=== PATIENT | male | born 1940 | race Caucasian/White ===

== ENCOUNTER 2018-12-26 10:43 | Day surgery (SDC) | payer MEDICARE, SELFPAY ==
--- NOTE | 2018-12-26 | PATH_ITS ---
[facility] Accession Number: [id number] . 01 Material submitted: . PART A: cecum - CECAL POLYP PART B: colon - ASCENDING COLON POLYP X3 PART C: colon - TRANSVERSE COLON POLYP . 02 Diagnosis: A. Cecum, Polyp, Biopsy: Benign lymphoid aggregate. . B. Ascending Colon, Polyps x3, Biopsies: Fragments of tubular adenoma and sessile serrated adenoma. . C. Transverse Colon, Polyp, Biopsy: Tubular adenoma. MRV 12/28/2018 1410 Local . 02 Electronically signed: . Diane Urbina MD, Pathologist NPI- [id number] . 01 Gross description: . Part A: CECAL POLYP: Received in formalin is 1 fragment(s) of olivo, soft tissue measuring 0.6 x 0.5 x 0.3 cm submitted entirely in 1 cassette(s). Part B: ASCENDING COLON POLYP X3: Received in formalin are multiple fragment(s) of olivo, soft tissue measuring 0.1 x 0.1 x 0.1 cm to 0.9 x 0.6 x 0.4 cm submitted entirely in 1 cassette(s) Part C: TRANSVERSE COLON POLYP: Received in formalin are 2 fragment(s) of olivo, soft tissue measuring 0.1 x 0.1 x 0.1 cm to 0.3 x 0.2 x 0.2 cm submitted entirely in 1 cassette(s) /[facility] 12/26/20182022 Local . 02 Pathologist provided ICD-10: D12.2, D12.3 . 02 CPT . 875674, 412856, 557105 Performed at: [address] [facility], [place], [place] [id number] MD Micah Ott MD Phone: [phone] Performed at: 02 [facility] [address] [place] [id number] MD Diane Urbina MD Phone: [phone]
--- NOTE | 2018-12-26 08:10 | PM.HP.1 ---
History of Present Illness History of Present Illness Date Patient Seen: 12/26/18 Chief complaint: [id number] Narrative: The patient is a 78-year-old male who is referred to our office due to a positive cologuard test. He had a prior colonoscopy performed in 2008 which according to him was normal. There is no family history of colon cancer and he currently has no alarm symptoms. Meds Home Medications and Allergies Home Medications Medication Instructions Recorded Confirmed Type No Known Home Medications 12/26/18 12/26/18 History Allergies Allergy/AdvReac Type Severity Reaction Status Date / Time No Known Drug Allergies Allergy Verified 12/26/18 11:09 Exam Narrative Exam Narrative: General: Patient is well developed, not in apparent distress Cardiovascular: Regular rate and rhythm, no murmurs, rubs, or gallops; no evidence of edema; no palpable abdominal aortic aneurysm Gastrointestinal: Normoactive bowel sounds, soft, nontender, nondistended, no rebound tenderness, no hepatosplenomegaly, no evidence of hernia Assessment & Plan Assessment & Plan narrative: 70-year-old male referred to our office due to a positive cologuard test. Last colonoscopy was in 2008 which the patient states was normal and patient declined at that time any further colonoscopies for screening. Regarding the procedure(s), the risks and potential complications, benefits, and alternatives (including not doing the procedure) were discussed with the patient. The risks include but are not limited to bleeding, splenic injury, infection, perforation which may require surgical intervention, missed lesions, and adverse reactions to sedative medicines. After a question and answer period, the patient agreed to proceed with the procedure(s) and gives informed consent.
[2018-12-26] MEDS: SODIUM CHLORIDE 0.9% 1,000 ML 70 ML IV (11:08)
[2018-12-26 11:09] VITALS: BP 150/92; PULSE 82; RESP 15; TEMP 36.9; O2SAT 98; BMI 25.7
--- NOTE | 2018-12-26 12:21 | PM.OP.ENDO ---
Operative Date/Time/Diagnoses Date of procedure: 12/26/18 Procedure Notes Procedure in detail: Surgeon: Greg Matthews MD Procedure: Colonoscopy with polypectomy Preoperative diagnosis: positive Cologuard Postoperative diagnosis: Colon polyps x5 status post polypectomy; sigmoid diverticulosis; hypertrophied anal papillae Medications: Conscious sedation using 2 mg IV of Midazolam and 100 mcg IV of Fentanyl Preanesthesia Assessment An H and P was performed/updated and the Px?s ASA class is 2. The procedure was discussed in detail with the patient. The potential risks and complications including infection, bleeding, missed lesions, perforation, need for surgery in case of perforation, prolonged hospital stay, and were explained. A brief question and answer period was allotted and once all questions were answered, informed consent was obtained. The patient was brought back to the procedure room and placed on standard monitoring. The patient?s vital signs were monitored continuously throughout the entire procedure. Prior to starting, a timeout was performed to confirm the patient?s identity, allergies, medications, and procedure. Procedure in detail The patient was placed in left lateral decubitus position and once adequate sedation was obtained a LISET was performed. The digital rectal examination did not reveal any palpable lesions. The tip of the colonoscope was placed in the anal canal and advanced without difficulty all the way to the cecum which was identified by the appendiceal orifice and the ileocecal valve. The terminal ileum was intubated to a distance of 5 cm from the ileocecal valve and the mucosa appeared normal. The colonoscope was then withdrawn back into the cecum. Careful examination of all diaz of the colon was performed with irrigation of any residual stool. In the cecum there was note of a 4 mm sessile polyp which was removed by means of cold snare. Resection and retrieval were complete with minimal bleeding In the ascending colon, there was note of a 6 mm sessile polyp and a 10 mm sessile polyps both of which were removed by means of cold snare. There was also note of a 3 mm sessile polyp which was removed by means of cold Jumbo forceps. Resection and retrieval were complete. In the transverse colon, there was note of a 3 mm sessile polyp which was removed by means of cold Jumbo forceps. Resection and retrieval were complete. There was note of multiple medium-sized diverticula in the sigmoid colon Retroflexion was performed in the rectum which revealed hypertrophied anal papillae The patient tolerated the procedure well and will be brought back to the recovery area to be discharged once criteria are met. The prep was judged to be good and adequate to identify polyps less than 5 mm. The withdrawal time was 12 minutes. The total physician intraservice time was 15 minutes. Complications There were no complications and estimated blood loss was minimal. Recommendations: Resume previous diet Follow up pathology results Repeat colonoscopy in 3 years for surveillance. This exam would be dependent on the patient's health issues at that time An emergency contact number was given to the patient for any complications related to the procedure
[2018-12-26] MEDS: MIDAZOLAM 5 MG/5 ML VIAL IV (12:56)
[2018-12-26] MEDS: fentaNYL 250 MCG/5 ML INJ IV (12:56)
[2018-12-26 12:58] VITALS: BP 134/67; PULSE 87; RESP 16; TEMP 36.9; O2SAT 97
[2018-12-26 13:09] VITALS: BP 119/79; PULSE 86; RESP 11; O2SAT 97
[2018-12-26 13:17] VITALS: BP 132/74; PULSE 85; RESP 12; TEMP 36.2; O2SAT 98
--- NOTE | 2018-12-26 14:07 | SUR.PHASEII ---
Discharge note: Patient awake, tolerating po without nausea. Abdomen soft. No complaints of pain. IV discontinued. Stable for discharge to home. Discharge instructions given and explained with good understanding. Taxi to home.
== END 2018-12-26 14:03 | disposition home or self-care (01) ==
PROVIDERS: Family Provider Internal Medicine; PCP Internal Medicine; Visit Provider Internal Medicine Gastroenterology
PROC: 0DJD8ZZ Inspection of Lower Intestinal Tract, Via Natural or Artificial Opening Endoscopic (ICD-10-PCS; CPT 45378; principal; 2018-12-26 12:30)
DX: R19.5 Other fecal abnormalities (principal); K57.30 Diverticulosis of large intestine without perforation or abscess without bleeding; D12.2 Benign neoplasm of ascending colon; D12.3 Benign neoplasm of transverse colon; K64.4 Residual hemorrhoidal skin tags
CPT/HCPCS: 45385; 45380; J2250; J3010

== ENCOUNTER 2020-12-24 10:30 | Outpatient (RCR) | payer MEDICARE, SELFPAY ==
--- NOTE | 2020-12-22 11:15 | PT.OIE ---
Current Diagnoses Stiffness of other specified joint, not elsewhere classified (12/22/20) Sciatica, unspecified side (12/22/20) Lumbago with sciatica, left side (12/22/20) Visit Care Team Role Provider Type Ilana Hurt MD Family Provider Physician Primary Care Provider Specialty: Internal Medicine Address: [address] [place] [address] Email: [email or web address] SERA Rivera Attending Provider Advanced Biomass Technician Referring Provider Specialty: EM Address: [address] [place] [address], [id number] Email: Physical Therapy Initial Evaluation PT-OP-A Visit Information Start: 12/22/20 17:37 Freq: Status: Active Protocol: Document 12/22/20 10:30 DCW (Rec: 12/22/20 17:46 DCW [id number]) Out-Patient Physical Therapy Visit Information Visit Information Visit Type Initial Evaluation Visit Start Time 10:30 Visit Stop Time 11:15 Total Visit Minutes 45 Visit Number 1 Number of MILK PROCESSING WORKER Visits 0 Evaluation Information Evaluation Date 12/22/20 PT-OP-B Current Condition Start: 12/22/20 17:37 Freq: Status: Active Protocol: Document 12/22/20 10:30 DCW (Rec: 12/22/20 17:46 DC [id number]) Current Condition History of Current Condition Onset Date 2-3 weeks Current Complaints Left leg pain/back pain History of Current Condition Pt is an 80 year old male with a 2-3 week history of back pain/leg pain. Pt reports he woke up with a sudden, unexplained pain down his left leg. Pt reports he tried to tough it out, but was unable to put any weight on it and had excruciating pain when sitting on the toilet. Admits he was even worse by the next morning, and finally went in to the walk-in clinic. Pt notes that at that time, he received an injection of something, I don't remember what, and within 2 hours didn't have any more pain. Pt has continued to be pain-free since his injection, but wants to know what is going on in his back, and hopefully prevent it from getting worse. Pt reports he still has difficulty putting socks on or clipping his toenails, mainly because he just feels stiff all the time. PT-OP-C Subjective Start: 12/22/20 17:37 Freq: Status: Active Protocol: Document 12/22/20 10:30 DCW (Rec: 12/22/20 17:49 DCW [id number]) OP-PT Subjective Patient Comments Patient Comments The only time I really ever think I injured my back, I was out on my boat in [place], and was sitting and twisted when we went up and came down pretty hard. But that was 1.5 years ago, so I don't know how related it is. Patient Questionnaires Oswestry Low Back Index Oswestry Score = 12% PT-OP-F Manual Assessment Start: 12/22/20 17:37 Freq: Status: Active Protocol: Document 12/22/20 10:30 DCW (Rec: 12/23/20 11:34 DCW [id number]) Manual Assessments Soft Tissue Assessment Soft Tissue Mobility Assessment Mild-moderate tone in left piriformis, bilateral lumbar paraspinals Joint Mobility Assessment Joint Mobility Assessment Hypomobility throughout lumbar vertebrae PT-OP-K Range of Motion Start: 12/22/20 17:37 Freq: Status: Active Protocol: Document 12/22/20 10:30 DCW (Rec: 12/23/20 11:34 DCW [id number]) Lumbar Spine Range of Motion Lumbar Spine Active Degrees Testing Position Standing Flexion 10 Extension 5 Comments Nearly all mobility with standing flexion/extension occurs in pt's hips and knees, minimal movement of lumbar spine PT-OP-L Special Tests Start: 12/22/20 17:37 Freq: Status: Active Protocol: Document 12/22/20 10:30 DCW (Rec: 12/23/20 11:34 DCW [id number]) Special Tests Lumbar Spine Special Tests CHANDRA Test Results Negative Straight Leg Raise Test Results HS tightness Standing Flexion Test Results Negative Slump Test Results Negative A-P Shearing Test Results Negative PT-OP-M Strength Start: 12/22/20 17:37 Freq: Status: Active Protocol: Document 12/22/20 10:30 DCW (Rec: 12/23/20 11:34 DCW [id number]) Hip Strength Hip Manual Muscle Testing Right Flexion (L2) 4 Good Abduction 5 Normal Adduction 5 Normal External Rotation 5 Normal Internal Rotation 5 Normal Left Flexion (L2) 4+ Good+ Abduction 5 Normal Adduction 5 Normal External Rotation 4+ Good+ Internal Rotation 4+ Good+ Knee Strength Knee Manual Muscle Testing Right Flexion (S2) 5 Normal Extension (L3) 5 Normal Left Flexion (S2) 5 Normal Extension (L3) 5 Normal PT-OP-Q Treatments Start: 12/22/20 17:37 Freq: Status: Active Protocol: Document 12/22/20 10:30 DCW (Rec: 12/23/20 11:34 DCW [id number]) Therapeutic Exercises Supine Exercises 1 Supine Exercise Name Piriformis stretch Side left Comments Figure-4, Knee to opposite shoulder Sitting Exercises 2 Sitting Exercise Name Seated lumbar flexion stretch 1 Sitting Exercise Name Piriformis stretch Side left Comments Seated figure-4 PT-OP-T Assessment and Plan Start: 12/22/20 17:37 Freq: Status: Active Protocol: Document 12/22/20 10:30 DCW (Rec: 12/23/20 11:43 DCW [id number]) Physical Therapy Assessment Rehab Potential Rehabilitation Potential Excellent Evaluation Complexity Number of Personal Factors/Comorbidities 0 Number of Body Systems Impaired 1-2 Clinical Presentation at Evaluation Stable Impairments Impairments ROM,Tone Goals Two Impairment Pt experiences difficulty donning/doffing socks due to limited mobility Short Term Goal (STG) Pt to report no difficulty with donning/doffing socks or clipping toenails to show improved ROM/mobility in his hips and low back. STG Duration 01/21/21 One Impairment Pt does not have an appropriate home exercise program Short Term Goal (STG) Pt to be independent and compliant with an appropriate HEP STG Duration 01/21/21 Assessment Summary Assessment Pt presents 2-3 weeks following insidious low back injury. Pt overall doing significantly better following injection at the walk-in clinic, not having any complaints of continued pain. Pt does appear to have some limitations with mobility and ROM in his lumbar spine, with hypomobility in his lumbar vertebrae, as well as increased tone along his left piriformis. Pt will likely benefit from fairly short-term course of skilled physical therapy for training in stretching to improve his ability to don and doff his socks, but is overall doing very well at this time. Physical Therapy Plan Frequency and Duration Frequency of Treatment 1-2x/week Duration of Treatment One month Plan of Care Start Date 12/22/20 Plan of Care End Date 01/21/21 Therapeutic Interventions Therapeutic Interventions Aquatic Therapy,Joint Mobilizations,Manual Therapy, Patient/Caregiver Education, Self-Care/Home Management,Soft Tissue Mobilization, Therapeutic Exercises Next Visit Focus/Plan Next Note Type Treatment Note Next Visit Plan Stretching, STM
--- NOTE | 2020-12-22 11:15 | PT.OPPOC ---
Physical, Occupational & Speech Therapy At [facility] Current Diagnoses Stiffness of other specified joint, not elsewhere classified (12/22/20) Sciatica, unspecified side (12/22/20) Lumbago with sciatica, left side (12/22/20) Visit Care Team Role Provider Type Ilana Hurt MD Family Provider Physician Primary Care Provider Specialty: Internal Medicine Address: [address] [place] [address], [address] Email: [email or web address] Telephone & Telegraph SERA Rivera Attending Provider Advanced Dietetic Aide Referring Provider Specialty: EM Address: [address] [place] [address], [address] Email: Plan Of Care PT-OP-T Assessment and Plan Start: 12/22/20 17:37 Freq: Status: Active Protocol: Document 12/22/20 10:30 DCW (Rec: 12/23/20 11:43 DCW [id number]) Physical Therapy Assessment Rehab Potential Rehabilitation Potential Excellent Evaluation Complexity Number of Personal Factors/Comorbidities 0 Number of Body Systems Impaired 1-2 Clinical Presentation at Evaluation Stable Impairments Impairments ROM,Tone Goals Two Impairment Pt experiences difficulty donning/doffing socks due to limited mobility Short Term Goal (STG) Pt to report no difficulty with donning/doffing socks or clipping toenails to show improved ROM/mobility in his hips and low back. STG Duration 01/21/21 One Impairment Pt does not have an appropriate home exercise program Short Term Goal (STG) Pt to be independent and compliant with an appropriate HEP STG Duration 01/21/21 Assessment Summary Assessment Pt presents 2-3 weeks following insidious low back injury. Pt overall doing significantly better following injection at the walk-in clinic, not having any complaints of continued pain. Pt does appear to have some limitations with mobility and ROM in his lumbar spine, with hypomobility in his lumbar vertebrae, as well as increased tone along his left piriformis. Pt will likely benefit from fairly short-term course of skilled physical therapy for training in stretching to improve his ability to don and doff his socks, but is overall doing very well at this time. Physical Therapy Plan Frequency and Duration Frequency of Treatment 1-2x/week Duration of Treatment One month Plan of Care Start Date 12/22/20 Plan of Care End Date 01/21/21 Therapeutic Interventions Therapeutic Interventions Aquatic Therapy,Joint Mobilizations,Manual Therapy, Patient/Caregiver Education, Self-Care/Home Management,Soft Tissue Mobilization, Therapeutic Exercises Next Visit Focus/Plan Next Note Type Treatment Note Next Visit Plan Stretching, STM Plan of Care Dates Plan of Care Start Date 12/22/20 Plan of Care End Date 01/21/21 Electronically Signed by: Cristobal Britt, PT 12/23/20 1277 Please Sign and Return: I have reviewed this Plan of Care and certify that the skilled therapy services above are required to meet the patient?s needs. Physician Signature Date Printed Name and Credentials Clinical Instructor Signature Printed Name and Credentials
--- NOTE | 2020-12-22 11:15 | PT.OPPOC ---
Physical, Occupational & Speech Therapy At [facility] Current Diagnoses Stiffness of other specified joint, not elsewhere classified (12/22/20) Sciatica, unspecified side (12/22/20) Lumbago with sciatica, left side (12/22/20) Visit Care Team Role Provider Type Ilana Hurt MD Family Provider Physician Primary Care Provider Specialty: Internal Medicine Address: [address] [place] [address], [address] Email: [email or web address] Dining SERA Rivera Attending Provider Advanced Kiln Loader Referring Provider Specialty: EM Address: [address] [place] [address], [address] Email: Plan Of Care PT-OP-T Assessment and Plan Start: 12/22/20 17:37 Freq: Status: Active Protocol: Document 12/22/20 10:30 DCW (Rec: 12/23/20 11:43 DCW [id number]) Physical Therapy Assessment Rehab Potential Rehabilitation Potential Excellent Evaluation Complexity Number of Personal Factors/Comorbidities 0 Number of Body Systems Impaired 1-2 Clinical Presentation at Evaluation Stable Impairments Impairments ROM,Tone Goals Two Impairment Pt experiences difficulty donning/doffing socks due to limited mobility Short Term Goal (STG) Pt to report no difficulty with donning/doffing socks or clipping toenails to show improved ROM/mobility in his hips and low back. STG Duration 01/21/21 One Impairment Pt does not have an appropriate home exercise program Short Term Goal (STG) Pt to be independent and compliant with an appropriate HEP STG Duration 01/21/21 Assessment Summary Assessment Pt presents 2-3 weeks following insidious low back injury. Pt overall doing significantly better following injection at the walk-in clinic, not having any complaints of continued pain. Pt does appear to have some limitations with mobility and ROM in his lumbar spine, with hypomobility in his lumbar vertebrae, as well as increased tone along his left piriformis. Pt will likely benefit from fairly short-term course of skilled physical therapy for training in stretching to improve his ability to don and doff his socks, but is overall doing very well at this time. Physical Therapy Plan Frequency and Duration Frequency of Treatment 1-2x/week Duration of Treatment One month Plan of Care Start Date 12/22/20 Plan of Care End Date 01/21/21 Therapeutic Interventions Therapeutic Interventions Aquatic Therapy,Joint Mobilizations,Manual Therapy, Patient/Caregiver Education, Self-Care/Home Management,Soft Tissue Mobilization, Therapeutic Exercises Next Visit Focus/Plan Next Note Type Treatment Note Next Visit Plan Stretching, STM Plan of Care Dates Plan of Care Start Date 12/22/20 Plan of Care End Date 01/21/21 Electronically Signed by: Cristobal Britt, PT 12/23/20 2170 Please Sign and Return: I have reviewed this Plan of Care and certify that the skilled therapy services above are required to meet the patient?s needs. Physician Signature Date Printed Name and Credentials Clinical Instructor Signature Printed Name and Credentials
--- NOTE | 2020-12-24 11:03 | PT.OTN ---
Current Diagnoses Stiffness of other specified joint, not elsewhere classified (12/24/20) Sciatica, unspecified side (12/24/20) Lumbago with sciatica, left side (12/24/20) Physical Therapy Treatment Note PT-OP-A Visit Information Start: 12/22/20 17:37 Freq: Status: Active Protocol: Document 12/24/20 10:30 DCW (Rec: 12/24/20 11:03 DCW [id number]) Out-Patient Physical Therapy Visit Information Visit Information Visit Type Treatment Note Visit Start Time 10:30 Visit Stop Time 01:00 Total Visit Minutes 30 Visit Number 2 Number of MEAT COOLER Visits 0 Evaluation Information Evaluation Date 12/22/20 PT-OP-B Current Condition Start: 12/22/20 17:37 Freq: Status: Active Protocol: Document 12/22/20 10:30 DCW (Rec: 12/22/20 17:46 DCW [id number]) Current Condition History of Current Condition Onset Date 2-3 weeks Current Complaints Left leg pain/back pain History of Current Condition Pt is an 80 year old male with a 2-3 week history of back pain/leg pain. Pt reports he woke up with a sudden, unexplained pain down his left leg. Pt reports he tried to tough it out, but was unable to put any weight on it and had excruciating pain when sitting on the toilet. Admits he was even worse by the next morning, and finally went in to the walk-in clinic. Pt notes that at that time, he received an injection of something, I don't remember what, and within 2 hours didn't have any more pain. Pt has continued to be pain-free since his injection, but wants to know what is going on in his back, and hopefully prevent it from getting worse. Pt reports he still has difficulty putting socks on or clipping his toenails, mainly because he just feels stiff all the time. PT-OP-C Subjective Start: 12/22/20 17:37 Freq: Status: Active Protocol: Document 12/24/20 10:30 DCW (Rec: 12/24/20 11:03 DCW [id number]) OP-PT Subjective Patient Comments Patient Comments After the first set of stretches, I felt like I was run over by a truck, but after a few more time, it feels like it is loosening up. PT-OP-F Manual Assessment Start: 12/22/20 17:37 Freq: Status: Active Protocol: Document 12/22/20 10:30 DCW (Rec: 12/23/20 11:34 DCW [id number]) Manual Assessments Soft Tissue Assessment Soft Tissue Mobility Assessment Mild-moderate tone in left piriformis, bilateral lumbar paraspinals Joint Mobility Assessment Joint Mobility Assessment Hypomobility throughout lumbar vertebrae PT-OP-K Range of Motion Start: 12/22/20 17:37 Freq: Status: Active Protocol: Document 12/22/20 10:30 DCW (Rec: 12/23/20 11:34 DCW [id number]) Lumbar Spine Range of Motion Lumbar Spine Active Degrees Testing Position Standing Flexion 10 Extension 5 Comments Nearly all mobility with standing flexion/extension occurs in pt's hips and knees, minimal movement of lumbar spine PT-OP-L Special Tests Start: 12/22/20 17:37 Freq: Status: Active Protocol: Document 12/22/20 10:30 DCW (Rec: 12/23/20 11:34 DCW [id number]) Special Tests Lumbar Spine Special Tests CHANDRA Test Results Negative Straight Leg Raise Test Results HS tightness Standing Flexion Test Results Negative Slump Test Results Negative A-P Shearing Test Results Negative PT-OP-M Strength Start: 12/22/20 17:37 Freq: Status: Active Protocol: Document 12/22/20 10:30 DCW (Rec: 12/23/20 11:34 DCW [id number]) Hip Strength Hip Manual Muscle Testing Right Flexion (L2) 4 Good Abduction 5 Normal Adduction 5 Normal External Rotation 5 Normal Internal Rotation 5 Normal Left Flexion (L2) 4+ Good+ Abduction 5 Normal Adduction 5 Normal External Rotation 4+ Good+ Internal Rotation 4+ Good+ Knee Strength Knee Manual Muscle Testing Right Flexion (S2) 5 Normal Extension (L3) 5 Normal Left Flexion (S2) 5 Normal Extension (L3) 5 Normal PT-OP-Q Treatments Start: 12/22/20 17:37 Freq: Status: Active Protocol: Document 12/24/20 10:30 DCW (Rec: 12/24/20 11:03 DCW [id number]) Therapeutic Exercises Supine Exercises 1 Supine Exercise Name Piriformis stretch Side left Comments Figure-4, Knee to opposite shoulder Sitting Exercises 4 Sitting Exercise Name UT/Scalene stretch 3 Sitting Exercise Name Self STM piriformis /c tennis ball 2 Sitting Exercise Name Seated lumbar flexion stretch 1 Sitting Exercise Name Piriformis stretch Side left Comments Seated figure-4 Self-Care/Home Management Treatment Education Other Education HEP review, A&P questions answered PT-OP-T Assessment and Plan Start: 12/22/20 17:37 Freq: Status: Active Protocol: Document 12/24/20 10:30 DCW (Rec: 12/24/20 11:03 DCW [id number]) Physical Therapy Assessment Goals Two Impairment Pt experiences difficulty donning/doffing socks due to limited mobility Short Term Goal (STG) Pt to report no difficulty with donning/doffing socks or clipping toenails to show improved ROM/mobility in his hips and low back. STG Duration 01/21/21 One Impairment Pt does not have an appropriate home exercise program Short Term Goal (STG) Pt to be independent and compliant with an appropriate HEP STG Duration 01/21/21 Assessment Summary Assessment Pt feeling confident that he can continue stretching independently, likely will be discharged, however agreeable to keeping chart open for ~one month in order to ensure pt continues to progress. Physical Therapy Plan Frequency and Duration Frequency of Treatment 1-2x/week Duration of Treatment One month Plan of Care Start Date 12/22/20 Plan of Care End Date 01/21/21 Therapeutic Interventions Therapeutic Interventions Aquatic Therapy,Joint Mobilizations,Manual Therapy, Patient/Caregiver Education, Self-Care/Home Management,Soft Tissue Mobilization, Therapeutic Exercises Next Visit Focus/Plan Next Note Type Treatment Note Next Visit Plan Stretching, STM
--- NOTE | 2021-04-16 12:24 | PT.OPDS ---
Current Diagnoses Stiffness of other specified joint, not elsewhere classified (12/24/20) Sciatica, unspecified side (12/24/20) Lumbago with sciatica, left side (12/24/20) Visit Care Team Role Provider Type Ilana Hurt MD Family Provider Physician Primary Care Provider Specialty: Internal Medicine Address: [address] [place] [address], [id number] Email: [email or web address] Rivera Attending Provider Advanced Server Systems Administrator Referring Provider Specialty: EM Address: [address] [place] [address], [address] Email: Visit Number Visit Number 2 Discharge Summary PT-OP-B Current Condition Start: 12/22/20 17:37 Freq: Status: Active Protocol: Document 12/22/20 10:30 DCW (Rec: 12/22/20 17:46 DCW [id number]) Current Condition History of Current Condition Onset Date 2-3 weeks Current Complaints Left leg pain/back pain History of Current Condition Pt is an 80 year old male with a 2-3 week history of back pain/leg pain. Pt reports he woke up with a sudden, unexplained pain down his left leg. Pt reports he tried to tough it out, but was unable to put any weight on it and had excruciating pain when sitting on the toilet. Admits he was even worse by the next morning, and finally went in to the walk-in clinic. Pt notes that at that time, he received an injection of something, I don't remember what, and within 2 hours didn't have any more pain. Pt has continued to be pain-free since his injection, but wants to know what is going on in his back, and hopefully prevent it from getting worse. Pt reports he still has difficulty putting socks on or clipping his toenails, mainly because he just feels stiff all the time. PT-OP-C Subjective Start: 12/22/20 17:37 Freq: Status: Active Protocol: Document 12/24/20 10:30 DCW (Rec: 12/24/20 11:03 DCW [id number]) OP-PT Subjective Patient Comments Patient Comments After the first set of stretches, I felt like I was run over by a truck, but after a few more time, it feels like it is loosening up. PT-OP-F Manual Assessment Start: 12/22/20 17:37 Freq: Status: Active Protocol: Document 12/22/20 10:30 DCW (Rec: 12/23/20 11:34 DCW [id number]) Manual Assessments Soft Tissue Assessment Soft Tissue Mobility Assessment Mild-moderate tone in left piriformis, bilateral lumbar paraspinals Joint Mobility Assessment Joint Mobility Assessment Hypomobility throughout lumbar vertebrae PT-OP-K Range of Motion Start: 12/22/20 17:37 Freq: Status: Active Protocol: Document 12/22/20 10:30 DCW (Rec: 12/23/20 11:34 DCW [id number]) Lumbar Spine Range of Motion Lumbar Spine Active Degrees Testing Position Standing Flexion 10 Extension 5 Comments Nearly all mobility with standing flexion/extension occurs in pt's hips and knees, minimal movement of lumbar spine PT-OP-L Special Tests Start: 12/22/20 17:37 Freq: Status: Active Protocol: Document 12/22/20 10:30 DCW (Rec: 12/23/20 11:34 DCW [id number]) Special Tests Lumbar Spine Special Tests CHANDRA Test Results Negative Straight Leg Raise Test Results HS tightness Standing Flexion Test Results Negative Slump Test Results Negative A-P Shearing Test Results Negative PT-OP-M Strength Start: 12/22/20 17:37 Freq: Status: Active Protocol: Document 12/22/20 10:30 DCW (Rec: 12/23/20 11:34 DCW [id number]) Hip Strength Hip Manual Muscle Testing Right Flexion (L2) 4 Good Abduction 5 Normal Adduction 5 Normal External Rotation 5 Normal Internal Rotation 5 Normal Left Flexion (L2) 4+ Good+ Abduction 5 Normal Adduction 5 Normal External Rotation 4+ Good+ Internal Rotation 4+ Good+ Knee Strength Knee Manual Muscle Testing Right Flexion (S2) 5 Normal Extension (L3) 5 Normal Left Flexion (S2) 5 Normal Extension (L3) 5 Normal PT-OP-T Assessment and Plan Start: 12/22/20 17:37 Freq: Status: Active Protocol: Document 04/16/21 12:22 DCW (Rec: 04/16/21 12:24 CYRIL [id number]) Physical Therapy Assessment Assessment Summary Assessment Following second visit, pt was fairly confident in his ability to maintain independent HEP, but his chart was kept open in case he needed any assistance. Pt has now not been seen in nearly 4 months, and he will be discharged from PT. Physical Therapy Plan Discharge Physical Therapy Discharge Reasons No Longer Attending PT Next Visit Focus/Plan Next Note Type Discharge Summary
== END 2021-04-21 13:22 ==
LOC: PHYS 10:30
PROVIDERS: Family Provider Internal Medicine; PCP Internal Medicine; Referring Provider Nurse Practitioner; Visit Provider Nurse Practitioner
DX: M54.42 Lumbago with sciatica, left side (principal); M25.69 Stiffness of other specified joint, not elsewhere classified
CPT/HCPCS: 97110; 97161

== ENCOUNTER → 2022-10-26 15:00 | Outpatient (CLI) | payer MEDICARE, SELFPAY ==
--- NOTE | 2022-10-26 | DI.RAD.S_ITS ---
PROCEDURE: XR CERVICAL SPINE 2V OR 3V INDICATIONS: NECK PAIN TECHNIQUE: Three views of the cervical spine were acquired. COMPARISON: None. FINDINGS: Bones: No acute fractures or dislocations to the C7-T1 level. The lateral masses of C1 appear intact on the odontoid view. No suspicious bony lesions. Multilevel disc space narrowing degenerative endplate changes are seen that are most prominent at the C5-6 level. There is multilevel uncovertebral joint and facet hypertrophy. Soft tissues: No prevertebral soft tissue swelling. IMPRESSION: Moderate multilevel spondylosis. Approved by: Jaun Hodges M.D. on 10/26/2022 at 18:37
== END ==
PROVIDERS: PCP Internal Medicine; Referring Provider Internal Medicine; Visit Provider Internal Medicine
DX: M54.2 Cervicalgia (principal); M47.812 Spondylosis without myelopathy or radiculopathy, cervical region
CPT/HCPCS: 72040

== ENCOUNTER 2022-11-23 13:30 | Outpatient (RCR) | payer MEDICARE, SELFPAY ==
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
--- NOTE | 2022-10-31 14:21 | PT.OPPOC ---
Physical, Occupational & Speech Therapy At [facility] Current Diagnoses Torticollis (10/31/22) Visit Care Team Role Provider Type Miesha Mcleod MD Referring Provider Non-Staff Specialty: Urology Address: [address] [place] [address], [address] Email: Ilana Hurt MD Attending Provider Physician Family Provider Primary Care Provider Specialty: Internal Medicine Address: [place], [address] Phone: Email: Plan Of Care PT-OP-T Assessment and Plan Start: 10/31/22 14:20 Freq: Status: Active Protocol: Document 10/31/22 14:21 AM (Rec: 10/31/22 17:32 AM [id number]) Physical Therapy Assessment Rehab Potential Rehabilitation Potential Good Evaluation Complexity Number of Personal Factors/Comorbidities 0 Number of Body Systems Impaired 1-2 Clinical Presentation at Evaluation Stable Impairments Impairments Activity Tolerance,Functional Activities,Functional Mobility ,Pain,Posture,ROM,Soft Tissue Mobility,Strength Goals HEP Impairment HEP Custodial Goal (LTG) Pt independent with postural HEP LTG Duration 12/12/22 ROM Impairment Pt with cervical AROM impairments. Short Term Goal (STG) Pt with 10 deg improvement with cervical rotation ROM. STG Duration 11/21/22 Bean Dumper Goal (LTG) Pt with 15 deg improvement with cervical rotation ROM. LTG Duration 12/12/22 Pain Impairment Pt reports pain at 5/10 at the worst. Short Term Goal (STG) Pt to report pain at 3/10 at the worst. STG Duration 11/21/22 Custodial Goal (LTG) Pt to report neck pain at 1/10 at the worst. LTG Duration 12/12/22 Sleep Impairment Pt reports difficulty with sleeping secondary to L head and neck pain. Custodial Goal (LTG) Pt to report that he has not had sleep disruption secondary to pain for 3 weeks. Assessment Summary Assessment Victor M Soriano presents to PT to address 2 month hx of intermittent L-sided cervical pain. Pt with pain at IE today , reporting that muscle relaxers were effective. Pt demonstrates limited cervical mobility in all directions, except for cervical flexion. Pt with tenderness at L cervical paraspinals and suboccipitals. Pt with reported increase in symptoms with AROM cervical extension, otherwise demonstrated minimal symptoms throughout session today. Pt would benefit from continued PT to improve cervical mobility and postural strength to decrease future exacerbations of cervical pain . Physical Therapy Plan Frequency and Duration Frequency of Treatment 2x/Week Duration of treatment (weeks) 6 Plan of Care Start Date 10/31/22 Plan of Care End Date 12/12/22 Therapeutic Interventions Therapeutic Interventions Coordination Training,Home Exercise Program,Joint Mobilizations,Manual Therapy, Neuromuscular Re-education, Patient/Caregiver Education, Self-Care/Home Management,Soft Tissue Mobilization, Therapeutic Activities, Therapeutic Exercises Modalities Cold Pack/Ice Massage,Electric Stimulation,Hot Packs, Ultrasound Next Visit Focus/Plan Next Note Type Treatment Note Next Visit Plan Manual techniques, continue progressing ROM and postural strength Plan of Care Dates Plan of Care Start Date 10/31/22 Plan of Care End Date 12/12/22 Electronically Signed by: Isabel Segura, PT 10/31/22 4610 If you are in agreement with this Plan of Care, please return a signed and dated copy. I have reviewed this Plan of Care and certify that the skilled therapy services above are required to meet the patient?s needs. Physician Signature Date Printed Name and Credentials Clinical Instructor Signature Printed Name and Credentials
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
== END 2022-12-13 12:16 | disposition home or self-care (01) ==
LOC: PHYS 13:30
PROVIDERS: Absent Provider Internal Medicine; Family Provider Internal Medicine; PCP Internal Medicine; Referring Provider Urology; Visit Provider Internal Medicine
DX: M43.6 Torticollis (principal)
CPT/HCPCS: 97110; 97140; 97161